=== PATIENT | male | born 1945 | race Native Hawaiian/Other Pacific Islander ===

== ENCOUNTER 2017-05-16 14:15 | Inpatient (IN) | payer OTHER ==
[~2017-05-16] VITALS: Ht 182.9 cm; Wt 95.8 kg
[2017-05-16] VITALS (11 sets, daily range): BP systolic 103–163; BP diastolic 64–95; TEMP 98–99.2; Ht 182.9 cm; Wt 95.8 kg
[~2017-05-16 14:15] MED LIST: BENADRYL25 M1 PO; CLARITIN10 MG PO; FLUT0.05 NAS; HYDR10TA47 PO; IPRA18AE INH; MULTI VITAMN PO; SERT50TA PO; SIMV10TA PO; TAMS0.4C PO
[2017-05-16 15:06] LABS: PLATELET COUNT 160 K/uL (142-355)
[2017-05-16 16:14] LABS: POTASSIUM 4.5 mmol/L (3.6-5.2)
[2017-05-16] MEDS ORDERED: SIMV20TA2 PO (19:01)
[2017-05-16] MEDS ORDERED: SERT100T PO (19:03)
[2017-05-16] MEDS ORDERED: ROPINIROLE1 MG PO (19:05)
[2017-05-16] MEDS ORDERED: ALBU0.5N6 IN (19:09)
[2017-05-16] MEDS ORDERED: BUDE1AER3 INH (19:10)
[2017-05-16] MEDS ORDERED: MOMETASONE IN (19:11)
[2017-05-16] MEDS ORDERED: [UNRECOGNIZED DRUG - OTHER] IN (19:11)
[2017-05-17] VITALS (11 sets, daily range): BP systolic 115–142; BP diastolic 53–105; TEMP 97.6–98.6
[2017-05-17 07:59] LABS: PLATELET COUNT 146 K/uL (142-355)
[2017-05-18] VITALS: BP 140/60; TEMP 97.5
[2017-05-18 04:00] VITALS: BP 122/78; TEMP 98.7
[2017-05-18 05:58] LABS: PLATELET COUNT 148 K/uL (142-355)
[2017-05-18 06:14] LABS: POTASSIUM 4.2 mmol/L (3.6-5.2)
[2017-05-18 08:10] VITALS: BP 118/74; TEMP 97.9
== END 2017-05-18 08:52 | disposition home or self-care (01) | DRG 192 ==
LOC: ICU 14:15 → MED/SURG 05-17 10:57
PROVIDERS: ADMIT Student in an Organized Health Care Education/Training Program
DX: J44.0 Chronic obstructive pulmonary disease with (acute) lower respiratory infection (principal); J20.9 Acute bronchitis, unspecified; J44.1 Chronic obstructive pulmonary disease with (acute) exacerbation; E78.00 Pure hypercholesterolemia, unspecified; N40.0 Benign prostatic hyperplasia without lower urinary tract symptoms; E86.0 Dehydration; G20 Parkinson's disease
CPT/HCPCS: 36415; 36600; 80053; 82805; 82962; 85027; 87070; 87205; 88108; 93005; 94640; 94664; 94668; 94760; 96365; 96366; 96367; 96372; 96374; J1650; J1956; J2930; J3490

== ENCOUNTER 2017-06-15 03:20 | Outpatient (CLI) | payer OTHER ==
[~2017-06-15 03:20] MED LIST changes: +ALBU0.5N6 IN; +BUDE1AER3 INH; +MOMETASONE IN; +ROPINIROLE1 MG PO; +SERT100T PO; +SIMV20TA2 PO; +[UNRECOGNIZED DRUG - OTHER] IN
== END 2017-06-15 03:26 | disposition short-term general hospital (02) ==
LOC: AMB 03:20
DX: R06.09 Other forms of dyspnea (principal)
CPT/HCPCS: A0425; A0429

== ENCOUNTER 2017-06-15 03:31 | Inpatient (IN) | payer OTHER ==
[~2017-06-15] VITALS: Ht 182.9 cm; Wt 92.8 kg
[2017-06-15] VITALS (15 sets, daily range): BP systolic 126–166; BP diastolic 72–111; TEMP 98–100; Ht 182.9 cm; Wt 92.8 kg
[2017-06-15 04:15] LABS: PLATELET COUNT 167 K/uL (142-355)
[2017-06-15 04:31] LABS: POTASSIUM 4.5 mmol/L (3.6-5.2)
[2017-06-16] VITALS: BP 110/60; TEMP 98.4
[2017-06-16 04:00] VITALS: BP 122/80; TEMP 98.2
[2017-06-16 06:29] LABS: POTASSIUM 4.7 mmol/L (3.6-5.2)
[2017-06-16 06:39] LABS: PLATELET COUNT 150 K/uL (142-355)
[2017-06-16 08:00] VITALS: BP 122/73; TEMP 98.1
[2017-06-16 11:51] VITALS: BP 109/69; TEMP 98.3
[2017-06-16 16:20] VITALS: BP 129/63; TEMP 98.3
[2017-06-16 20:00] VITALS: BP 116/66; TEMP 98.4
[2017-06-17] VITALS: BP 120/68; TEMP 97.8
[2017-06-17 04:00] VITALS: BP 111/57; TEMP 97.8
[2017-06-17 08:00] VITALS: BP 124/70; TEMP 97.8
[2017-06-17 12:00] VITALS: BP 132/63; TEMP 97.8
[2017-06-17 16:00] VITALS: BP 129/74; TEMP 98
[2017-06-17 20:00] VITALS: BP 136/81; TEMP 98.8
[2017-06-18] VITALS: BP 138/66; TEMP 97.4
[2017-06-18 04:00] VITALS: BP 101/79; TEMP 97.2
[2017-06-18 08:04] VITALS: BP 150/59; TEMP 98.1
== END 2017-06-18 13:31 | disposition home or self-care (01) | DRG 192 ==
LOC: ED 03:31 → MED/SURG 07:50
PROVIDERS: Emergency Medicine; ADMIT Student in an Organized Health Care Education/Training Program
DX: J44.0 Chronic obstructive pulmonary disease with (acute) lower respiratory infection (principal); R06.02 Shortness of breath; E78.00 Pure hypercholesterolemia, unspecified; F41.8 Other specified anxiety disorders; Z79.01 Long term (current) use of anticoagulants
CPT/HCPCS: 36600; 80053; 81000; 82550; 82553; 82805; 83880; 84484; 85027; 85379; 87804; 93005; 94640; 94664; 94760; 96366; 96367; 96372; 96374; 96375; 99284; J1650; J1956; J2920; J2930; Q9963

== ENCOUNTER 2017-06-25 17:43 | Emergency (ER) | payer OTHER ==
[~2017-06-25] VITALS: Ht 185.4 cm; Wt 86.2 kg
[2017-06-25 18:21] LABS: PLATELET COUNT 181 K/uL (142-355)
[2017-06-25 18:30] LABS: SODIUM 138 mmol/L (136-145)
[2017-06-25 19:42] VITALS: BP 160/90
== END 2017-06-25 19:47 | disposition home or self-care (01) ==
LOC: ED 17:43
DX: J44.1 Chronic obstructive pulmonary disease with (acute) exacerbation (principal)
CPT/HCPCS: 36415; 36600; 80053; 82805; 85027; 94664; 96374; 99284; J1100; J2930

== ENCOUNTER 2018-05-30 10:04 | Outpatient (CLI) | payer OTHER | END 2018-05-30 10:10 | disposition short-term general hospital (02) | LOC: AMB 10:04 | DX: R06.02 Shortness of breath (principal) | CPT/HCPCS: A0425; A0427 ==

== ENCOUNTER 2018-05-30 10:14 | Emergency (ER) | payer OTHER ==
[~2018-05-30] VITALS: Ht 182.9 cm; Wt 91.2 kg
[2018-05-30 11:03] LABS: PLATELET COUNT 144 K/uL (142-355)
[2018-05-30 11:15] LABS: POTASSIUM 5.4 mmol/L (3.6-5.2)
[2018-05-30 12:09] VITALS: BP 128/80; TEMP 98
== END 2018-05-30 12:20 | disposition home or self-care (01) ==
LOC: ED 10:14
PROVIDERS: Emergency Medicine
DX: J44.1 Chronic obstructive pulmonary disease with (acute) exacerbation (principal); J40 Bronchitis, not specified as acute or chronic; R00.0 Tachycardia, unspecified
CPT/HCPCS: 80053; 85027; 93005; 94664; 99283

== ENCOUNTER 2019-05-25 11:04 | Inpatient (IN) | payer OTHER ==
[~2019-05-25] VITALS: Ht 180.3 cm; Wt 88.7 kg
[2019-05-25] VITALS (18 sets, daily range): BP systolic 98–1488; BP diastolic 66–83; TEMP 97.5–98.7; Ht 180.3 cm; Wt 88.7 kg
[2019-05-25 11:55] LABS: PLATELET COUNT 174 K/uL (142-355)
[2019-05-25 12:15] LABS: POTASSIUM 3.7 mmol/L (3.6-5.2)
[2019-05-25] MEDS ORDERED: LEVOFLOXACIN750 MG PO (16:23)
[2019-05-26] VITALS (23 sets, daily range): BP systolic 105–150; BP diastolic 41–85; TEMP 97.2–98.2
[2019-05-26 08:42] LABS: PLATELET COUNT 147 K/uL (142-355)
[2019-05-26 09:08] LABS: POTASSIUM 4.5 mmol/L (3.6-5.2)
[2019-05-27] VITALS (15 sets, daily range): BP systolic 116–143; BP diastolic 68–80; TEMP 97–97.8
[2019-05-28] VITALS: BP 146/76; TEMP 97.5
[2019-05-28 04:00] VITALS: BP 128/73; TEMP 97.9
[2019-05-28 05:35] LABS: POTASSIUM 4.6 mmol/L (3.6-5.2)
[2019-05-28 05:38] LABS: PLATELET COUNT 143 K/uL (142-355)
[2019-05-28 08:00] VITALS: BP 131/61; TEMP 97.8
[2019-05-28 12:00] VITALS: BP 124/88; TEMP 98.2
[2019-05-28 16:00] VITALS: BP 147/66; TEMP 98.1
[2019-05-28 20:00] VITALS: BP 139/67; TEMP 98.6
== END 2019-05-29 01:04 | disposition home or self-care (01) | DRG 190 ==
LOC: ICU 11:04 → MED/SURG 11:04
PROVIDERS: ADMIT Student in an Organized Health Care Education/Training Program
DX: J44.0 Chronic obstructive pulmonary disease with (acute) lower respiratory infection (principal); J18.8 Other pneumonia, unspecified organism; J44.1 Chronic obstructive pulmonary disease with (acute) exacerbation; N40.0 Benign prostatic hyperplasia without lower urinary tract symptoms; F32.89 Other specified depressive episodes; G20 Parkinson's disease
CPT/HCPCS: 36415; 36600; 80048; 80053; 82805; 83735; 85027; 87040; 87070; 87205; 87899; 94640; 94644; 94664; 94760; J0456; J1644; J2060; J2920

== ENCOUNTER 2019-06-02 17:10 | Emergency (ER) | payer OTHER ==
[~2019-06-02] VITALS: Ht 180.3 cm; Wt 88.5 kg
[~2019-06-02 17:10] MED LIST changes: +LEVOFLOXACIN750 MG PO
[2019-06-02 18:00] LABS: PLATELET COUNT 164 K/uL (142-355)
[2019-06-02 18:04] LABS: POTASSIUM 4.3 mmol/L (3.6-5.2)
[2019-06-02 20:20] VITALS: BP 149/69; TEMP 98.8
== END 2019-06-02 20:20 | disposition home or self-care (01) ==
LOC: ED 17:13
PROVIDERS: Family Medicine
DX: J44.1 Chronic obstructive pulmonary disease with (acute) exacerbation (principal)
CPT/HCPCS: 36600; 80053; 81000; 82805; 85027; 87502; 94664; 94760; 99283; J1100

== ENCOUNTER 2021-10-23 19:10 | Emergency (ER) | payer OTHER ==
[~2021-10-23] VITALS: Ht 180.3 cm; Wt 87.5 kg
[2021-10-23 19:31] LABS: PLATELET COUNT 151 K/uL (142-355)
[2021-10-23 19:35] LABS: POTASSIUM 4.5 mmol/L (3.6-5.2)
[2021-10-23 23:00] VITALS: BP 118/36; TEMP 98.4
== END 2021-10-23 23:00 | disposition short-term general hospital (02) ==
LOC: ED 19:10
PROVIDERS: Emergency Medicine Emergency Medical Services
DX: I21.4 Non-ST elevation (NSTEMI) myocardial infarction (principal); J18.9 Pneumonia, unspecified organism; J44.1 Chronic obstructive pulmonary disease with (acute) exacerbation; F17.210 Nicotine dependence, cigarettes, uncomplicated; Z11.52 Encounter for screening for COVID-19
CPT/HCPCS: 36415; 36600; 80053; 82805; 83605; 83735; 83880; 84484; 85027; 85379; 85610; 87040; 87635; 93005; 94664; 96360; 96365; 99284; J3490; Q9963; U0003

== ENCOUNTER 2021-12-06 13:33 | Outpatient (CLI) | payer OTHER | END 2021-12-06 19:13 | disposition home or self-care (01) | LOC: CT 13:33 | PROVIDERS: ATTEND Internal Medicine Sleep Medicine | DX: J43.8 Other emphysema (principal) ==

== ENCOUNTER 2022-04-23 15:48 | Outpatient (CLI) | payer OTHER | END 2022-04-23 19:39 | disposition home or self-care (01) | LOC: RAD 15:48 | PROVIDERS: ATTEND Nurse Practitioner Family | DX: M79.641 Pain in right hand (principal); D64.89 Other specified anemias ==

== ENCOUNTER 2022-09-03 16:00 | Outpatient (CLI) | payer OTHER | END 2022-09-03 19:23 | disposition home or self-care (01) | LOC: RAD 16:00 | PROVIDERS: ATTEND Nurse Practitioner Family | DX: R42 Dizziness and giddiness (principal) | CPT/HCPCS: 93005 ==

== ENCOUNTER 2023-02-06 13:21 | Outpatient (CLI) | payer OTHER | END 2023-02-06 18:59 | disposition home or self-care (01) | LOC: CT 13:21 | PROVIDERS: ATTEND Nurse Practitioner Family | DX: J44.1 Chronic obstructive pulmonary disease with (acute) exacerbation (principal) | CPT/HCPCS: 36415; 82565; 84520; Q9963 ==

== ENCOUNTER 2023-02-08 12:14 | Outpatient (CLI) | payer OTHER | END 2023-02-08 20:27 | disposition home or self-care (01) | LOC: US 12:14 | PROVIDERS: ATTEND Nurse Practitioner Family | DX: E04.1 Nontoxic single thyroid nodule (principal) ==

== ENCOUNTER 2023-08-07 12:13 | Outpatient (CLI) | payer OTHER | END 2023-08-07 19:05 | disposition home or self-care (01) | LOC: RAD 12:13 | PROVIDERS: ATTEND Physician Assistant | DX: M54.59 Other low back pain (principal) ==